=== PATIENT | female | born 1945 | race Caucasian/White ===

== ENCOUNTER 2022-06-14 21:06 | Inpatient (IN) | payer MEDICARE, OTHER ==
[~2022-06-14] VITALS: Ht 162.6 cm; Wt 49.9 kg
--- NOTE | 2022-06-14 21:20 | NUR ---
[id number] from snf, came in d/t sob 88% on room air, 98% on face mask 5liters. PLACED IN BED, AAOX3, BREATHING EVEN AND UNLABORED.
--- NOTE | 2022-06-14 21:44 | NUR ---
PT SEEN BY DR. HOPE
--- NOTE | 2022-06-14 21:45 | NUR ---
COVID ANTIGEN SWAB COLLECTED AND SENT TO LAB
--- NOTE | 2022-06-14 21:46 | NUR ---
EMT AT PT'S BEDSIDE FOR EKG
--- NOTE | 2022-06-14 21:48 | NUR ---
PT CAME WITH MIDLINE ON RIGHT UPPER ARM
--- NOTE | 2022-06-14 21:48 | NUR ---
BLOOD DRAWN BY HEAT TREAT OPERATOR
[2022-06-14 21:49] LABS: BASOPHILS % (AUTO) 0.1 % (0.0-2.0); EOSINOPHILS % (AUTO) 0.3 % (0.0-6.0); HEMATOCRIT 25 % (33-45); HEMOGLOBIN 7.8 g/dL (11.5-14.8); LYMPHOCYTES % (AUTO) 14.9 % (20.0-44.0); MEAN CORPUSCULAR HGB CONC 31 g/dl (31.0-36.0); MEAN CORPUSCULAR VOLUME 89 fL (82-100); MONOCYTES # (AUTO) 0.2 K/uL (0.1-1.30); MONOCYTES % (AUTO) 3.7 % (2.0-12.0); NEUTROPHILS # (AUTO) 5.3 K/uL (1.8-8.9); PLATELET COUNT (AUTO) 155 K/uL (150-450); RED BLOOD CELL COUNT(AUTO) 2.81 MIL/uL (4.0-5.2); WHITE BLOOD COUNT (AUTO) 6.5 K/uL (4.3-11.0)
--- NOTE | 2022-06-14 21:57 | NUR ---
RT CALLED FOR ABG
[2022-06-14] MEDS ORDERED: FUROSEMIDE 40 MG/4 ML VIAL IV ONE (22:00)
[2022-06-14] MEDS ORDERED: FUROSEMIDE 40 MG/4 ML VIAL ONE (22:04)
--- NOTE | 2022-06-14 22:05 | NUR ---
URINE COLLECTED AND SENT TO LAB
[2022-06-14 22:10] LABS: CALCIUM, SERUM 8.3 mg/dL (8.5-10.1); CARBON DIOXIDE 17 mmol/L (21-32); CHLORIDE 117 mmol/L (98-107); CREATININE 1.5 mg/dL (0.6-1.3); POTASSIUM 3.9 mmol/L (3.5-5.1); SODIUM SERUM 142 mmol/L (136-145); UREA NITROGEN, BLOOD 43 mg/dL (7-18)
--- NOTE | 2022-06-14 22:12 | NUR ---
GLUCOSE 369
--- NOTE | 2022-06-14 22:13 | NUR ---
RT AT PT'S BEDSIDE FOR ABG
[2022-06-14 22:22] LABS: ALANINE AMINOTRANSFERASE 16 U/L (12-78); ALBUMIN 2.1 g/dL (3.4-5.0); ALKALINE PHOSPHATASE 111 U/L (46-116); ASPARTATE AMINOTRANSFERASE 15 U/L (15-37); BILIRUBIN,DIRECT 0.1 mg/dL (0.0-0.2); BILIRUBIN,TOTAL 0.1 mg/dL (0.2-1.0); TOTAL PROTEIN, SERUM 6.4 g/dL (6.4-8.2)
[2022-06-14 22:26] LABS: GLUCOSE 369 mg/dL (74-106)
[2022-06-14 22:37] LABS: ABG BASE EXCESS -12.4 mmol/L; ABG PCO2 35.6 mmHg (35.0-45.0); ABG PH 7.221 (7.350-7.450); ABG PO2 83.5 mmHg (75.0-100.0); COHb 0.2 % (0.5-1.5); O2Hb 95.1 % (94.0-97.0); SITE, ABG Right Radial; VENT MODE, BG 6L SIMPLE MASK
[2022-06-14] MEDS ORDERED: ENOXAPARIN SODIUM 60 MG/0.6 ML DISP.SYRIN SQ ONE ×2 (22:44→23:00)
--- NOTE | 2022-06-14 22:44 | NUR ---
CLINICAL REPORT GIVEN TO GELY FROM [facility]
--- NOTE | 2022-06-14 22:53 | NUR ---
RESP. TECH AT BEDSIDE PATIENT ATTACHED TO BIPAP WITH SETTING IPAP-15, EPAP-5, RATE-18, FIO2-30%, SATURATING AT 96%.
[2022-06-14 23:03] LABS: BILIRUBIN,URINE NEGATIVE (NEGATIVE); COLOR,URINE DARK YELLOW (YELLOW); LEUKOCYTE ESTERASE ,URINE 3+ (NEGATIVE); NITRITE, URINE NEGATIVE (NEGATIVE); PROTEIN,URINE 2+ mg/dl (NEGATIVE); UGLUCOSE NEGATIVE (NEGATIVE); UROBILINOGEN,URINE 0.2 EU/dL (0.2)
[2022-06-14 23:06] LABS: BACTERIA,URINE Many /HPF (None Seen); SQUAMOUS EPITHELIAL CELL,UR Few /HPF (None Seen); WBC,URINE TOO NUMEROUS TO COUN /HPF (0-3)
[2022-06-14] MEDS ORDERED: CEFTRIAXONE 1GM BAG (ER ONLY) 50 ML IV ONE (23:18)
[2022-06-14] MEDS ORDERED: CEFTRIAXONE 1GM BAG (ER ONLY) 1 GM/50 ML PIGGYBACK IV ONE (23:30)
[2022-06-15] VITALS (15 sets, daily range): BP systolic 138–154; BP diastolic 71–90
--- NOTE | 2022-06-15 01:07 | NUR ---
RT AT PT'S BEDSIDE FOR ABG
--- NOTE | 2022-06-15 02:08 | NUR ---
NEEDS ATTENDED. POSITIONED COMFORTABLY
--- NOTE | 2022-06-15 04:12 | NUR ---
PT SLEEPING. STILL ON BIPAP 15/ RATE OF 18 FiO2 30%.
[2022-06-15] MEDS ORDERED: DEXTROSE 50%-WATER 50 ML DISP.SYRIN IV PRN ×2 (05:30→08:30)
[2022-06-15] MEDS ORDERED: ONDANSETRON HCL/PF 4 MG/2 ML VIAL IVP PRN (05:30)
[2022-06-15] MEDS ORDERED: MAGNESIUM HYDROXIDE 30 ML UDC PO PRN (05:30)
[2022-06-15] MEDS ORDERED: hydrALAZINE HCL IV 20 MG VIAL IV PRN (05:30)
[2022-06-15] MEDS ORDERED: *INSULIN REGULAR(HUMULIN R)HUM 100 UNIT/ML VIAL SQ PRN (05:30)
[2022-06-15] MEDS ORDERED: ACETAMINOPHEN 325 MG TABLET PO PRN (05:30)
[2022-06-15] MEDS ORDERED: ALBUTEROL FS 2.5 MG/0.5 ML VIAL.NEB NEB PRN (05:30)
[2022-06-15] MEDS ORDERED: Z GUARD REMEDY 4 OZ OINT TP PRN (05:30)
[2022-06-15] MEDS ORDERED: INSULIN REGULAR, HUMAN 100 UNIT/ML 3 ML VIAL SQ PRN (05:30)
[2022-06-15] MEDS ORDERED: MORPHINE SULFATE INJ 2 MG/ML DISP.SYRIN IV PRN (05:30)
--- NOTE | 2022-06-15 05:37 | NUR ---
ATTEMPTED TO GIVE REPORT. PER RN SUP REPORT TO BE GIVEN AFTER CHANGE OF SHIFT
[2022-06-15] MEDS ORDERED: IPRATROPIUM/ALBUTEROL INHALER IH SCH (06:00)
--- NOTE | 2022-06-15 06:40 | NUR ---
2DECHO DONE AT BEDSIDE
--- NOTE | 2022-06-15 07:23 | NUR ---
CALLED RN QUALITY CONTROL MANAGER THAT WE NEED MIDLINE NURSE TO INSERT IV ACCESS. DR BAZAN ORDERED.
--- NOTE | 2022-06-15 07:24 | NUR ---
REPORT GIVEN TO ROBERT FRANCES
[2022-06-15] MEDS ORDERED: BLOOD SUGAR DIAGNOSTIC 1 EACH STRIP VI SCH (07:30)
--- NOTE | 2022-06-15 07:54 | NUR ---
report given to belia du
[2022-06-15] MEDS ORDERED: IPRATROPIUM NEB FS 0.5 MG/2.5 ML AMPUL.NEB ONE (07:55)
[2022-06-15] MEDS ORDERED: ALBUTEROL FS 2.5 MG/0.5 ML VIAL.NEB ONE (07:55)
[2022-06-15] MEDS: ALBUTEROL FS 2.5 MG/0.5 ML VIAL.NEB NEB SCH ×3 (07:58→20:11)
[2022-06-15] MEDS: IPRATROPIUM NEB FS 0.5 MG/2.5 ML AMPUL.NEB IH SCH ×3 (07:58→20:10)
[2022-06-15] MEDS ORDERED: TRAM50TA2 PO (08:11)
[2022-06-15] MEDS ORDERED: AMIN30LI2 PO (08:11)
[2022-06-15] MEDS ORDERED: CRAN3875 PO (08:11)
[2022-06-15] MEDS ORDERED: PANT40TA2 PO (08:11)
[2022-06-15] MEDS ORDERED: FERR325T23 PO (08:11)
[2022-06-15] MEDS ORDERED: ASCO-352 PO (08:11)
[2022-06-15] MEDS ORDERED: LACT1CAP71 PO (08:11)
[2022-06-15] MEDS ORDERED: MULT-447 PO (08:11)
[2022-06-15] MEDS ORDERED: IPRA3AMP23 IH (08:11)
[2022-06-15] MEDS ORDERED: CRAN425C6 PO (08:11)
[2022-06-15] MEDS ORDERED: RISP0.2515 PO (08:11)
[2022-06-15] MEDS ORDERED: INSU100V39 SQ (08:11)
[2022-06-15] MEDS ORDERED: ARGI1POW13 PO (08:11)
[2022-06-15] MEDS ORDERED: ATOR10TA PO (08:11)
[2022-06-15] MEDS ORDERED: LEVO25TA7 PO (08:11)
[2022-06-15] MEDS ORDERED: ACET-868 PO ×2 (08:11)
[2022-06-15] MEDS ORDERED: AMLO-213 PO (08:11)
[2022-06-15] MEDS ORDERED: METO25TA20 PO (08:11)
[2022-06-15] MEDS ORDERED: INSU100I26 SQ (08:11)
[2022-06-15] MEDS ORDERED: EPOE1VIA6 SQ (08:11)
[2022-06-15] MEDS ORDERED: MAGN400O6 PO (08:11)
--- NOTE | 2022-06-15 08:20 | NUR ---
ADMITTED PT. FROM ER DEPT D/T SOB DIAGNOSIS PER ER-RN OCT. NO BELONGINGS NOTED. KEPT PT. CLEAN AND COMFORTABLE.
--- NOTE | 2022-06-15 08:23 | NUR ---
moved to inpatient room safely per acls protocol .
--- NOTE | 2022-06-15 08:35 | NUR ---
DR SHARMA SEEN PT. AND AWARE OF LAB RESULTS ALSO OF TROPONIN=93 AND BNP FROM 06/14/22.
[2022-06-15] MEDS: BLOOD SUGAR DIAGNOSTIC 1 EACH STRIP IN SCH ×3 (09:25→17:27)
[2022-06-15] MEDS: INSULIN REGULAR, HUMAN 100 UNIT/ML 3 ML VIAL SQ PRN ×2 (09:39→13:07)
[2022-06-15] MEDS: FUROSEMIDE 40 MG/4 ML VIAL IV SCH ×2 (09:40→17:27)
[2022-06-15] MEDS: HEPARIN SODIUM, PORCINE 5000 UNITS/1 ML VIAL SQ SCH ×2 (10:16→21:51)
[2022-06-15 12:25] LABS: THYROID STIMULATING HORMONE 3.838 uIU/mL (0.358-3.74)
[2022-06-15 12:52] LABS: MAGNESIUM 1.9 mg/dL (1.8-2.4)
--- NOTE | 2022-06-15 13:40 | NUR ---
PHONE REPORT GIVEN TO GURPREET REGARDING TRANSFER.
--- NOTE | 2022-06-15 14:00 | NUR ---
PATIENT WAS TRANSFERRED TO [facility]-BED 1 PER ORDER/ACLS PROTOCOL. PARI-RN AT BEDSIDE. PT. NO SSX OF DISTRESS NOTED.
--- NOTE | 2022-06-15 14:00 | NUR ---
RN NOTE PATIENT WAS TRANSFER FROM ICU VIA GURNEY WITH NO SIGN OF DISTRESS. V/S TAKEN, TABLE AND RECORDED. SKIN ASSESSMENT DONE. BELONGING LIST CHECKED AND SIGNED. PATIENT WAS ORIENTED TO ROOM SET UP AND EDUCATED ON THE USE OF CALL LIGHT. PATIENT AWAKE IN BED RESTING, A/O X 1, CONFUSED. NO S/S OF PAIN NOTED AT THIS TIME. ON 5L OXYGEN VIA NC, NO DISTRESS OR SHORTNESS OF BREATH NOTED. IV ACCESS KEVYN MIDLINE, INTACT, PATENT AND FLUSHING WELL. 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 PATIENT HAVE A SAUNDERS CATHETER IN PLACE AND DRAINING WELL. FALL AND SAFETY MEASURES IN PLACE, BED ALARM ON, BED IN LOW AND LOCK POSITION, CALL LIGHT AND TABLE WITHIN EASY REACH, SIDE RAILS UP X2. WILL CONTINUE TO MONITOR.
--- NOTE | 2022-06-15 18:40 | NUR ---
METAL NUMERICAL TOOL PROGRAMMER OPENING NOTES PATIENT AWAKE IN BED RESTING, A/O X 1, CONFUSED. NO S/S OF PAIN NOTED AT THIS TIME. ON 5L OXYGEN VIA NC. NO DISTRESS OR SHORTNESS OF BREATH NOTED. IV ACCESS KEVYN MIDLINE, INTACT, PATENT AND FLUSHING WELL. NO CARDIAC DISTRESS NOTED. PATIENT HAVE A SAUNDERS CATHETER IN PLACE AND DRAINING WEL. SAFETY MEASURES GIVEN WITH BED ON LOWEST POSITION AND LOCKED. SIDE RAILS UP X 2. BED ALARM ON. CALL LIGHT AND TABLE WITHIN EASY REACH. WILL CONTINUE WITH THE PLAN OF CARE.
--- NOTE | 2022-06-15 18:59 | NUR ---
RN CLOSING NOTE PATIENT AWAKE IN BED RESTING, A/O X 1, CONFUSED. NO S/S OF PAIN NOTED AT THIS TIME. ON 5L OXYGEN VIA NC, NO DISTRESS OR SHORTNESS OF BREATH NOTED. IV ACCESS KEVYN MIDLINE, INTACT, PATENT AND FLUSHING WELL. 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 PATIENT HAVE A SAUNDERS CATHETER IN PLACE AND DRAINING WELL, OUTPUT 800ML, YELLOW URINE. SCHEDULE MEDICATIONS ADMINISTERED. PATIENT WS TURNED AND REPOSITIONED PER PROTOCOL. FALL AND SAFETY MEASURES IN PLACE, BED ALARM ON, BED IN LOW AND LOCK POSITION, CALL LIGHT AND TABLE WITHIN EASY REACH, SIDE RAILS UP X2. WILL ENDORSE TO LIQUOR ESTABLISHMENT MANAGER.
[2022-06-16] VITALS (8 sets, daily range): BP systolic 144–163; BP diastolic 76–92
--- NOTE | 2022-06-16 00:10 | NUR ---
RN NOTES PATIENT'S BLOOD SUGAR IS 132. INSULIN NOT GIVEN. PATIENT IS ON NPO.
[2022-06-16] MEDS: BLOOD SUGAR DIAGNOSTIC 1 EACH STRIP IN SCH ×4 (00:13→17:17)
--- NOTE | 2022-06-16 00:53 | NUR ---
TELERN DUE MEDS ADMINISTERED.
[2022-06-16] MEDS: ALBUTEROL FS 2.5 MG/0.5 ML VIAL.NEB NEB SCH ×4 (01:30→20:18)
[2022-06-16] MEDS: IPRATROPIUM NEB FS 0.5 MG/2.5 ML AMPUL.NEB IH SCH ×4 (01:30→20:18)
[2022-06-16 05:50] LABS: BASOPHILS % (AUTO) 0.1 % (0.0-2.0); EOSINOPHILS % (AUTO) 1.1 % (0.0-6.0); HEMATOCRIT 24 % (33-45); HEMOGLOBIN 7.7 g/dL (11.5-14.8); LYMPHOCYTES # (AUTO) 1.9 K/uL (0.8-4.8); LYMPHOCYTES % (AUTO) 19.9 % (20.0-44.0); MEAN CORPUSCULAR HGB CONC 32 g/dl (31.0-36.0); MEAN CORPUSCULAR VOLUME 88 fL (82-100); MONOCYTES # (AUTO) 0.5 K/uL (0.1-1.30); MONOCYTES % (AUTO) 5.1 % (2.0-12.0); NEUTROPHILS # (AUTO) 6.9 K/uL (1.8-8.9); NEUTROPHILS % (AUTO) 73.8 % (43.0-81.0); PLATELET COUNT (AUTO) 159 K/uL (150-450); RED BLOOD CELL COUNT(AUTO) 2.76 MIL/uL (4.0-5.2); WHITE BLOOD COUNT (AUTO) 9.3 K/uL (4.3-11.0)
[2022-06-16 06:08] LABS: ALANINE AMINOTRANSFERASE 14 U/L (12-78); ALBUMIN 2.2 g/dL (3.4-5.0); ALKALINE PHOSPHATASE 105 U/L (46-116); ASPARTATE AMINOTRANSFERASE 17 U/L (15-37); BILIRUBIN,TOTAL 0.2 mg/dL (0.2-1.0); CALCIUM, SERUM 8.5 mg/dL (8.5-10.1); CARBON DIOXIDE 18 mmol/L (21-32); CHLORIDE 119 mmol/L (98-107); CREATININE 1.4 mg/dL (0.6-1.3); GLUCOSE 146 mg/dL (74-106); MAGNESIUM 1.8 mg/dL (1.8-2.4); PHOSPHORUS 3.5 mg/dL (2.5-4.9); POTASSIUM 3.7 mmol/L (3.5-5.1); SODIUM SERUM 148 mmol/L (136-145); TOTAL PROTEIN, SERUM 6.5 g/dL (6.4-8.2); UREA NITROGEN, BLOOD 39 mg/dL (7-18)
--- NOTE | 2022-06-16 06:24 | NUR ---
VIDEO SURVEILLANCE TECHNICIAN NOTES PATIENT'S TROPONIN LEVEL IS 116 PER JASPER FROM LAB. WILL REPORT TO THE DOCTOR.
--- NOTE | 2022-06-16 06:50 | NUR ---
SERVICE UNIT OPERATOR OIL WELL CLOSING NOTES PATIENT AWAKE IN BED RESTING, A/O X 1, CONFUSED. NO S/S OF PAIN NOTED AT THIS TIME. ON 5L OXYGEN VIA NC, NO DISTRESS OR SHORTNESS OF BREATH NOTED. IV ACCESS KEVYN MIDLINE, INTACT, PATENT AND FLUSHING WELL. 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 PATIENT HAVE A SAUNDERS CATHETER IN PLACE AND DRAINING WELL, OUTPUT 2050 ML, YELLOW URINE. SCHEDULE MEDICATIONS ADMINISTERED. PATIENT WAS TURNED AND REPOSITIONED PER PROTOCOL. PICTURES TAKEN TODAY. FALL AND SAFETY MEASURES IN PLACE, BED ALARM ON, BED IN LOW AND LOCK POSITION, CALL LIGHT AND TABLE WITHIN EASY REACH, SIDE RAILS UP X2. WILL ENDORSE TO SUPERVISOR COMMUNICATIONS AND SIGNALS.
[2022-06-16] MEDS ORDERED: LEVOTHYROXINE SODIUM 25 MCG TABLET PO SCH (07:30)
--- NOTE | 2022-06-16 07:35 | NUR ---
RN OPENING NOTE- PATIENT SLEEPING IN BED, EASILY AWAKENED, ON 3L OXYGEN VIA NC. SATS 98%. NO DISTRESS OR SHORTNESS OF BREATH NOTED. IV ACCESS KEVYN MIDLINE, INTACT, NO CARDIAC DISTRESS NOTED. PATIENT HAVE A SAUNDERS CATHETER TO GRAVITY DRAINING CLEAR YELLOW UA.. SAFETY MEASURES GIVEN WITH BED ON LOWEST POSITION AND LOCKED. SIDE RAILS UP X 2. BED ALARM ON. CALL LIGHT AND TABLE WITHIN EASY REACH. MONITOR / ASSIST
[2022-06-16 08:56] LABS: ABG BASE EXCESS -8.3 mmol/L; ABG OXYGEN SATURATION 94.4 % (92.0-98.5); ABG PCO2 25.8 mmHg (35.0-45.0); ABG PH 7.396 (7.350-7.450); ABG PO2 69.9 mmHg (75.0-100.0); AaDO2 99.3 mmHg; COHb 1.1 % (0.5-1.5); MetHb 0.2 % (0.0-1.5); O2Hb 93.2 % (94.0-97.0); SITE, ABG Right Radial; VENT MODE, BG 2L NASAL CANNULA
--- NOTE | 2022-06-16 09:09 | NUR ---
WOUND CARE CONSULT: PT PRESENTS WITH SEVERELY CONTRACTED LOWER EXTREMITIES, REDNESS TO HEELS AND TOES WELL VERY FRAGILE SACRAL SCAR, PRESENT ON ADMISSION. RECOMMENDATIONS MADE FOR SKIN PROTECTION. DISCUSSED WITH NURSING STAFF. MD IN AGREEMENT WITH PLAN OF CARE.
[2022-06-16] MEDS: FUROSEMIDE 40 MG/4 ML VIAL IV SCH ×2 (09:59→16:15)
[2022-06-16] MEDS: LEVOTHYROXINE SODIUM 50 MCG TABLET PO SCH (09:59)
[2022-06-16] MEDS: PANTOPRAZOLE 40 MG TABLET.DR PO SCH (09:59)
[2022-06-16] MEDS: HEPARIN SODIUM, PORCINE 5000 UNITS/1 ML VIAL SQ SCH ×2 (10:01→21:38)
[2022-06-16] MEDS: INSULIN REGULAR, HUMAN 100 UNIT/ML 3 ML VIAL SQ PRN ×3 (12:31→17:22)
--- NOTE | 2022-06-16 13:26 | NUR ---
RN NOTE PT BLOOD SUGAR 163. PT TO HAVE 3 UNIT SSI. PT NOT EATING, INSULIN HELD
[2022-06-16] MEDS: ENSURE ENLIVE 237 ML LIQUID (VANILLA) PO SCH (17:01)
--- NOTE | 2022-06-16 18:37 | NUR ---
CLOSING NOTE: PATIENT IS AWAKE, RESPONSIVE AND FOLLOWS VERBAL COMMAND. A/O X1, ON 3L OXYGEN VIA NC. SATS 97%. NO DISTRESS OR SHORTNESS OF BREATH NOTED. IV ACCESS KEVYN MIDLINE, INTACT, NO CARDIAC DISTRESS NOTED. ON TELE MONITOR SINUS RYTHYM, HR 86.PATIENT HAVE A SAUNDERS CATHETER TO GRAVITY DRAINING CLEAR YELLOW UA.SAFETY MEASURES GIVEN WITH BED ON LOWEST POSITION AND LOCKED. SIDE RAILS UP X 2. BED ALARM ON. CALL LIGHT AND TABLE WITHIN EASY REACH. WILL ENDORSE TO THE NEXT SHIFT FOR CONTINUITY OF CARE.
--- NOTE | 2022-06-16 19:20 | NUR ---
TELERN AWAKE, LIMITED VERBAL, CONFUSED. MIDLINE RIGHT UPPER ARM PATENT. SAUNDERS TO GRAVITY OUTPUT MONITORED. SR ON THE MONITOR. NO SOB, O2 MAINTAINED, HOB TO 45 DEGREES AT ALL TIMES. V/S STABLE, CONTINUED MONITORING
[2022-06-16] MEDS: CEFTRIAXONE 1 G in IV D5W 50 ML IV SCH (22:56)
--- NOTE | 2022-06-16 23:20 | NUR ---
TELERN HAD LARGE LOOSE BM, HS CARE STARTED. POSITIONED FOR COMFORT.
[2022-06-17 00:56] VITALS: BP 153/84
[2022-06-17] MEDS: ALBUTEROL FS 2.5 MG/0.5 ML VIAL.NEB NEB SCH ×4 (01:30→19:55)
[2022-06-17] MEDS: IPRATROPIUM NEB FS 0.5 MG/2.5 ML AMPUL.NEB IH SCH ×4 (01:30→19:55)
[2022-06-17 04:19] VITALS: BP 143/82
[2022-06-17 06:17] LABS: BASOPHILS % (AUTO) 0.2 % (0.0-2.0); EOSINOPHILS % (AUTO) 0.7 % (0.0-6.0); HEMATOCRIT 24 % (33-45); HEMOGLOBIN 7.6 g/dL (11.5-14.8); LYMPHOCYTES # (AUTO) 1.5 K/uL (0.8-4.8); LYMPHOCYTES % (AUTO) 14.3 % (20.0-44.0); MEAN CORPUSCULAR HGB CONC 32 g/dl (31.0-36.0); MEAN CORPUSCULAR VOLUME 88 fL (82-100); MONOCYTES # (AUTO) 0.7 K/uL (0.1-1.30); MONOCYTES % (AUTO) 6.5 % (2.0-12.0); NEUTROPHILS # (AUTO) 8.1 K/uL (1.8-8.9); NEUTROPHILS % (AUTO) 78.3 % (43.0-81.0); PLATELET COUNT (AUTO) 141 K/uL (150-450); RED BLOOD CELL COUNT(AUTO) 2.71 MIL/uL (4.0-5.2); WHITE BLOOD COUNT (AUTO) 10.4 K/uL (4.3-11.0)
[2022-06-17 06:20] LABS: CALCIUM, SERUM 8.1 mg/dL (8.5-10.1); CARBON DIOXIDE 20 mmol/L (21-32); CHLORIDE 113 mmol/L (98-107); CREATININE 1.5 mg/dL (0.6-1.3); GLUCOSE 213 mg/dL (74-106); POTASSIUM 3.1 mmol/L (3.5-5.1); SODIUM SERUM 145 mmol/L (136-145); UREA NITROGEN, BLOOD 33 mg/dL (7-18)
--- NOTE | 2022-06-17 06:35 | NUR ---
TELERN BS 188 COVERED WITH 3 UNITS REGULAR INSULIN SQ. 1500 CC URINE OUTPUT.
[2022-06-17] MEDS: BLOOD SUGAR DIAGNOSTIC 1 EACH STRIP IN SCH ×5 (06:41→23:10)
[2022-06-17] MEDS: INSULIN REGULAR, HUMAN 100 UNIT/ML 3 ML VIAL SQ PRN ×4 (06:53→23:36)
--- NOTE | 2022-06-17 07:15 | NUR ---
RN OPENING NOTE: PATIENT IS RESTING IN BED, RESPONSIVE AND FOLLOWS VERBAL COMMAND. A/O X1, ON 3L OXYGEN VIA NC. SATS 97%. NO DISTRESS OR SHORTNESS OF BREATH NOTED. IV ACCESS KEVYN MIDLINE, INTACT, NO CARDIAC DISTRESS NOTED. ON TELE MONITOR SINUS RYTHYM, HR 75. PATIENT HAS A SAUNDERS CATHETER WITH GRAVITY DRAINING CLEAR YELLOW UA.SAFETY MEASURES IN PLACE WITH BED IN LOWEST LOCKED POSITION. SIDE RAILS UP X 2. BED ALARM ON. CALL LIGHT AND TABLE WITHIN EASY REACH. WILL CONTINUE TO MONITOR.
[2022-06-17 08:00] VITALS: BP 160/80
[2022-06-17] MEDS: FUROSEMIDE 40 MG/4 ML VIAL IV SCH ×5 (08:26→17:00)
[2022-06-17] MEDS: ENSURE ENLIVE 237 ML LIQUID (VANILLA) PO SCH ×3 (08:26→17:13)
[2022-06-17] MEDS: PANTOPRAZOLE 40 MG TABLET.DR PO SCH (08:26)
[2022-06-17] MEDS: LEVOTHYROXINE SODIUM 50 MCG TABLET PO SCH (08:26)
[2022-06-17] MEDS: HEPARIN SODIUM, PORCINE 5000 UNITS/1 ML VIAL SQ SCH ×2 (08:27→21:48)
[2022-06-17] MEDS ORDERED: POTASSIUM CHLORIDE 20 MEQ TAB.PRT.SR PO SCH (09:00)
--- NOTE | 2022-06-17 10:23 | NUR ---
RN NOTE DOUBLE ORDER OF FUROSEMIDE FOR 9AM. GAVE 40IVP AND WILL GIVE SECOND DOSE AT 1300. CLARIFIED ORDER WITH
[2022-06-17 10:38] LABS: BAND % (MANUAL) 8 % (0.0-5.0); LYMPHOCYTES % (MANUAL) 8 % (16-48); MONOCYTES % (MANUAL) 4 % (0-11.0); NEUTROPHILS % (MANUAL) 80 (42-76)
[2022-06-17] MEDS: Potassium Chloride 10 MEQ, LIDOCAINE HCL/PF 1% 1 ML in IV D5W 50 ML IV SCH ×2 (10:51→11:53)
[2022-06-17 12:00] VITALS: BP 168/78
[2022-06-17 16:00] VITALS: BP 136/79
--- NOTE | 2022-06-17 17:34 | NUR ---
RN NOTE DOUBLE ORDER OF FUROSEMIDE GAVE 40IVP. MULTIPLE ORDERS IN EMAR
--- NOTE | 2022-06-17 19:21 | NUR ---
ELEMENTARY ESL TEACHER CLOSING NOTE PATIENT IS AWAKE, RESPONSIVE AND FOLLOWS VERBAL COMMAND. A/O X1, ON 2L OXYGEN VIA NC. SATS 97%. NO DISTRESS OR SHORTNESS OF BREATH NOTED. IV ACCESS KEVYN MIDLINE, INTACT, NO CARDIAC DISTRESS NOTED. ON TELE MONITOR SINUS RYTHYM, HR 76.PATIENT HAVE A SAUNDERS CATHETER TO GRAVITY DRAINING CLEAR YELLOW UA.SAFETY MEASURES GIVEN WITH BED ON LOWEST POSITION AND LOCKED. SIDE RAILS UP X 2. BED ALARM ON. CALL LIGHT AND TABLE WITHIN EASY REACH. WILL ENDORSE TO THE NEXT SHIFT FOR CONTINUITY OF CARE.
--- NOTE | 2022-06-17 20:00 | NUR ---
TELERN BREATHING TREATMENT ON PROGRESS. TO CONTINUE
[2022-06-17 20:17] VITALS: BP 153/86
[2022-06-17] MEDS: CEFTRIAXONE 1 G in IV D5W 50 ML IV SCH (23:10)
--- NOTE | 2022-06-17 23:52 | NUR ---
telern due meds administered. bs 186 covered with 3 units of regular insulin sq.
--- NOTE | 2022-06-17 23:53 | NUR ---
TELERN HS CARE STARTED, HAD LOOSE YELLOW BM
[2022-06-18 00:30] VITALS: BP 156/78
[2022-06-18] MEDS: ALBUTEROL FS 2.5 MG/0.5 ML VIAL.NEB NEB SCH ×4 (01:52→20:08)
[2022-06-18] MEDS: IPRATROPIUM NEB FS 0.5 MG/2.5 ML AMPUL.NEB IH SCH ×4 (01:52→20:08)
[2022-06-18 05:42] VITALS: BP 145/79
--- NOTE | 2022-06-18 06:18 | NUR ---
TELERN REPOSITIONED, KEPT DRY CLEAN AND COMFORTABLE. BLOOD DRAWN, BS 143, COVERED WITH 2 UNITS REG INSULIN SQ PER SLIDING SCALE.
[2022-06-18] MEDS: BLOOD SUGAR DIAGNOSTIC 1 EACH STRIP IN SCH ×4 (06:38→23:19)
[2022-06-18] MEDS: INSULIN REGULAR, HUMAN 100 UNIT/ML 3 ML VIAL SQ PRN ×4 (06:41→23:22)
[2022-06-18 07:06] LABS: BASOPHILS % (AUTO) 0.2 % (0.0-2.0); EOSINOPHILS % (AUTO) 1.6 % (0.0-6.0); HEMATOCRIT 24 % (33-45); HEMOGLOBIN 7.9 g/dL (11.5-14.8); LYMPHOCYTES # (AUTO) 1.8 K/uL (0.8-4.8); LYMPHOCYTES % (AUTO) 19.6 % (20.0-44.0); MEAN CORPUSCULAR HGB CONC 33 g/dl (31.0-36.0); MEAN CORPUSCULAR VOLUME 87 fL (82-100); MONOCYTES # (AUTO) 0.7 K/uL (0.1-1.30); NEUTROPHILS # (AUTO) 6.4 K/uL (1.8-8.9); NEUTROPHILS % (AUTO) 70.6 % (43.0-81.0); PLATELET COUNT (AUTO) 129 K/uL (150-450); RED BLOOD CELL COUNT(AUTO) 2.82 MIL/uL (4.0-5.2); WHITE BLOOD COUNT (AUTO) 9.1 K/uL (4.3-11.0)
--- NOTE | 2022-06-18 07:25 | NUR ---
RN OPENING NOTE RECEIVED PATIENT ASLEEP IN BED, EASILY AROUSED. NO SIGNS OF ACUTE DISTRESS NOTED. ON O2 INHALATION @2LPM VIA N/C, NO SOB NOTED, BREATHING EVEN AND UNLABORED. NOTED WITH RIGHT UPPER ARM MIDLINE, INTACT AND PATENT, SALINE LOCKED. NO S/SX OF PAIN AT THIS TIME. ON TELE MONITOR SHOWING SINUS RHYTHM, HR @ 79. SAFETY MEASURE IN PLACE, BED IN LOW AND LOCKED POSITION, SIDE RAILS UP , CALL LIGHT PLACED WITHIN EASY REACH. WILL CONTINUE TO MONITOR PATIENT.
[2022-06-18 07:49] LABS: CALCIUM, SERUM 8.2 mg/dL (8.5-10.1); CARBON DIOXIDE 23 mmol/L (21-32); CHLORIDE 113 mmol/L (98-107); CREATININE 1.5 mg/dL (0.6-1.3); GLUCOSE 143 mg/dL (74-106); MAGNESIUM 1.7 mg/dL (1.8-2.4); PHOSPHORUS 3.3 mg/dL (2.5-4.9); POTASSIUM 3.5 mmol/L (3.5-5.1); SODIUM SERUM 145 mmol/L (136-145); UREA NITROGEN, BLOOD 31 mg/dL (7-18)
[2022-06-18 08:00] VITALS: BP 148/85
[2022-06-18] MEDS: ENSURE ENLIVE 237 ML LIQUID (VANILLA) PO SCH ×3 (08:24→17:01)
[2022-06-18] MEDS: FUROSEMIDE 40 MG/4 ML VIAL IV SCH ×2 (08:24→16:12)
[2022-06-18] MEDS: LEVOTHYROXINE SODIUM 50 MCG TABLET PO SCH (08:24)
[2022-06-18] MEDS: PANTOPRAZOLE 40 MG TABLET.DR PO SCH (08:24)
[2022-06-18] MEDS: HEPARIN SODIUM, PORCINE 5000 UNITS/1 ML VIAL SQ SCH (08:25)
[2022-06-18] MEDS: Magnesium 1GM/D5W 100ML PREMIX 100 ML IV SCH ×2 (08:44→09:54)
[2022-06-18] MEDS: POTASSIUM CHLORIDE 20 MEQ TAB.PRT.SR PO SCH ×3 (08:44→11:05)
--- NOTE | 2022-06-18 10:21 | NUR ---
RN NOTE SPOKE WITH PATIENT'S BROTHER KATY BLAND, OBTAINED CONSENT FOR PLANNED THORACENTESIS TOMORROW. BROTHER GAVE VERBAL CONSENT, VERIFIED WITH ANOTHER RN. CONSENT PLACED IN CHART.
[2022-06-18 16:00] VITALS: BP 149/78
--- NOTE | 2022-06-18 18:35 | NUR ---
RN CLOSING NOTE PATIENT RESTING IN BED, EASILY AROUSED. NO SIGNS OF ACUTE DISTRESS NOTED. REMAINS ON O2 INHALATION @2LPM VIA N/C, NO SOB NOTED, BREATHING EVEN AND UNLABORED. RIGHT UPPER ARM MIDLINE, INTACT AND PATENT, SALINE LOCKED. NO S/SX OF PAIN AT THIS TIME. ALL DUE MEDS GIVEN, TOLERATED WELL. ASPIRATION PRECAUTION OBSERVED. HOB ELEVATED AT LEAST 40 DEGREES. SAFETY MEASURE IN PLACE, BED IN LOW AND LOCKED POSITION, SIDE RAILS UP, CALL LIGHT PLACED WITHIN EASY REACH. WILL ENDORSE TO NEXT SHIFT FOR CONTINUITY OF CARE.
--- NOTE | 2022-06-18 19:29 | NUR ---
MS RN OPENING NOTE RECEIVED PATIENT FROM MORNING SHIFT NURSE; PATIENT IS ALERT AND ORIENTED X 1, HEAD OF BED ELEVATED TO 40 DEGREES; ON NASAL CANNULA 2 LPM TOLERATING WELL AND NO RESPIRATORY DISTRESS NOTED; WITH KEVYN MIDLINE ACCESS; SAUNDERS CATHETER IN PLACE DRAINING TO YELLOW COLORED URINE APPROXIMATELY 1460ML; SAFETY PRECAUTIONS IMPLEMENTED, BED IN LOW POSITION, LOCKED, SIDE RAILS UP X 3, CALL LIGHT WITHIN REACH; WILL CONTINUE TO MONITOR THROUGHOUT SHIFT
[2022-06-18 20:00] VITALS: BP 157/77
--- NOTE | 2022-06-18 20:10 | NUR ---
Pt recvd on 2 lpm NC, no SOB or respiratory distress noted at this time. Neb tx given and pt vita well with no adverse reaction noted. SPo2 100%.
--- NOTE | 2022-06-18 20:20 | NUR ---
Titrated O2 from 2 lpm to 1 lpm. RN bedside and aware. Spo2 at 99%
[2022-06-18] MEDS: MUPIROCIN OINT 2% 22 GM TUBE NS SCH (20:48)
[2022-06-18 21:05] VITALS: BP 157/77
[2022-06-18] MEDS: CEFTRIAXONE 1 G in IV D5W 50 ML IV SCH (23:09)
[2022-06-19] MEDS: IPRATROPIUM NEB FS 0.5 MG/2.5 ML AMPUL.NEB IH SCH ×4 (02:23→20:52)
[2022-06-19] MEDS: ALBUTEROL FS 2.5 MG/0.5 ML VIAL.NEB NEB SCH ×4 (02:23→20:52)
[2022-06-19 05:47] LABS: BASOPHILS % (AUTO) 0.1 % (0.0-2.0); EOSINOPHILS % (AUTO) 2.4 % (0.0-6.0); HEMATOCRIT 25 % (33-45); HEMOGLOBIN 8.1 g/dL (11.5-14.8); LYMPHOCYTES # (AUTO) 1.7 K/uL (0.8-4.8); LYMPHOCYTES % (AUTO) 20.3 % (20.0-44.0); MEAN CORPUSCULAR HGB CONC 32 g/dl (31.0-36.0); MEAN CORPUSCULAR VOLUME 87 fL (82-100); MONOCYTES # (AUTO) 0.6 K/uL (0.1-1.30); MONOCYTES % (AUTO) 7.4 % (2.0-12.0); NEUTROPHILS # (AUTO) 5.8 K/uL (1.8-8.9); NEUTROPHILS % (AUTO) 69.8 % (43.0-81.0); PLATELET COUNT (AUTO) 123 K/uL (150-450); RED BLOOD CELL COUNT(AUTO) 2.87 MIL/uL (4.0-5.2); WHITE BLOOD COUNT (AUTO) 8.3 K/uL (4.3-11.0)
[2022-06-19] MEDS: BLOOD SUGAR DIAGNOSTIC 1 EACH STRIP IN SCH ×4 (05:53→23:35)
[2022-06-19] MEDS: INSULIN REGULAR, HUMAN 100 UNIT/ML 3 ML VIAL SQ PRN ×3 (05:58→23:35)
[2022-06-19 06:24] LABS: CALCIUM, SERUM 8.3 mg/dL (8.5-10.1); CARBON DIOXIDE 24 mmol/L (21-32); CHLORIDE 111 mmol/L (98-107); CREATININE 1.6 mg/dL (0.6-1.3); GLUCOSE 149 mg/dL (74-106); POTASSIUM 4.2 mmol/L (3.5-5.1); SODIUM SERUM 144 mmol/L (136-145); UREA NITROGEN, BLOOD 31 mg/dL (7-18)
--- NOTE | 2022-06-19 06:50 | NUR ---
MS RN CLOSING NOTE PATIENT IS ALERT AND ORIENTED X 1, HEAD OF BED ELEVATED TO 40 DEGREES; ON NASAL CANNULA 2 LPM TOLERATING WELL AND NO RESPIRATORY DISTRESS NOTED; WITH KEVYN MIDLINE ACCESS INTACT AND PATENT; SAUNDERS CATHETER IN PLACE DRAINING TO YELLOW COLORED URINE APPROXIMATELY 1500ML; ADMINISTERED MEDICATIONS PRESCRIBED; PATIENT'S NEEDS ATTENDED; MONITORED ACCORDINGLY; SAFETY PRECAUTIONS IMPLEMENTED, BED IN LOW POSITION, LOCKED, SIDE RAILS UP X 3, CALL LIGHT WITHIN REACH; WILL ENDORSE TO AM NURSE FOR CONTINUITY OF CARE
[2022-06-19 08:00] VITALS: BP 148/75
--- NOTE | 2022-06-19 08:00 | NUR ---
ms rn received on bed, awake,alert,oriented x 1 ,not in any form of distress, respirations even and unlabored,no sob noted,lungs are diminished,abdomen soft,positive bowel sounds,denies pain at this time, will monitor patient.
--- NOTE | 2022-06-19 09:15 | NUR ---
ms du breakfast served,due meds given,tolerated well.
[2022-06-19] MEDS: LEVOTHYROXINE SODIUM 50 MCG TABLET PO SCH (09:38)
[2022-06-19] MEDS: FUROSEMIDE 40 MG/4 ML VIAL IV SCH ×2 (09:38→17:31)
[2022-06-19] MEDS: PANTOPRAZOLE 40 MG TABLET.DR PO SCH (09:38)
[2022-06-19] MEDS: ENSURE ENLIVE 237 ML LIQUID (VANILLA) PO SCH ×3 (09:39→17:30)
[2022-06-19] MEDS: MUPIROCIN OINT 2% 22 GM TUBE NS SCH ×2 (12:05→21:47)
--- NOTE | 2022-06-19 14:00 | NUR ---
ms rn u/s guided thoracentesis was not done, management services technician will do in in am, charge nurse is aware.
--- NOTE | 2022-06-19 15:30 | NUR ---
13:24 ABDOMINAL ULTRASOUND DONE. PT DEFECATED AND URINATED, BED SHEETS DIRTY UP TO PT'S WAIST, NEEDED TO BE CLEANED AND CHANGED BEFORE US SCANNING FOR THORACENTESIS. PER RADIOLOGIST THORACENTESIS CAN NOT BE DONE LATER TODAY DO TO RISK OF PNEUMOTHORAX. IT WILL BE DONE TOMORROW. CHARGE NURSE AND RNPETR WERE INFORMED.
[2022-06-19 16:00] VITALS: BP 147/82
[2022-06-19 20:00] VITALS: BP 140/73
[2022-06-19] MEDS: CEFTRIAXONE 1 G in IV D5W 50 ML IV SCH (23:19)
[2022-06-20] MEDS: ALBUTEROL FS 2.5 MG/0.5 ML VIAL.NEB NEB SCH ×4 (02:30→21:01)
[2022-06-20] MEDS: IPRATROPIUM NEB FS 0.5 MG/2.5 ML AMPUL.NEB IH SCH ×4 (02:30→21:01)
--- NOTE | 2022-06-20 06:15 | NUR ---
END OF SHIFT REPORT Patient in bed, Alert Oriented x1 Confused. Oxygen sat high 90's in room air. KEVYN midline intact, on IV abx. Afebrile. Elizabeth catheter to drainage, output 700ml yellow. Had BM this shift. Turned and repositioned q 2h, BUE/BLE extremities contracted. Skin precaution maintained. Plan for Thoracentesis, continue abx. Will endorse to oncoming RN.
[2022-06-20 06:25] LABS: BASOPHILS % (AUTO) 0.3 % (0.0-2.0); EOSINOPHILS % (AUTO) 2.5 % (0.0-6.0); HEMATOCRIT 25 % (33-45); LYMPHOCYTES # (AUTO) 1.9 K/uL (0.8-4.8); LYMPHOCYTES % (AUTO) 25.3 % (20.0-44.0); MEAN CORPUSCULAR HGB CONC 32 g/dl (31.0-36.0); MEAN CORPUSCULAR VOLUME 88 fL (82-100); MONOCYTES # (AUTO) 0.6 K/uL (0.1-1.30); MONOCYTES % (AUTO) 8.7 % (2.0-12.0); NEUTROPHILS # (AUTO) 4.7 K/uL (1.8-8.9); NEUTROPHILS % (AUTO) 63.2 % (43.0-81.0); PLATELET COUNT (AUTO) 134 K/uL (150-450); RED BLOOD CELL COUNT(AUTO) 2.86 MIL/uL (4.0-5.2); WHITE BLOOD COUNT (AUTO) 7.4 K/uL (4.3-11.0)
[2022-06-20] MEDS: BLOOD SUGAR DIAGNOSTIC 1 EACH STRIP IN SCH ×4 (06:31→23:46)
[2022-06-20] MEDS: INSULIN REGULAR, HUMAN 100 UNIT/ML 3 ML VIAL SQ PRN ×4 (06:33→23:49)
[2022-06-20 06:48] LABS: CALCIUM, SERUM 8.1 mg/dL (8.5-10.1); CARBON DIOXIDE 23 mmol/L (21-32); CHLORIDE 107 mmol/L (98-107); CREATININE 1.7 mg/dL (0.6-1.3); GLUCOSE 169 mg/dL (74-106); POTASSIUM 3.9 mmol/L (3.5-5.1); SODIUM SERUM 142 mmol/L (136-145); UREA NITROGEN, BLOOD 33 mg/dL (7-18)
--- NOTE | 2022-06-20 07:20 | NUR ---
ms rn received on bed, sleeping, schneider catherte intact w/ yellowish urine output, denies pain at this time, no sob noted, for thoracentesis today, all needs attended.
[2022-06-20 08:00] VITALS: BP 128/58
[2022-06-20] MEDS: LEVOTHYROXINE SODIUM 50 MCG TABLET PO SCH (08:36)
[2022-06-20] MEDS: PANTOPRAZOLE 40 MG TABLET.DR PO SCH (08:36)
[2022-06-20] MEDS: FUROSEMIDE 40 MG/4 ML VIAL IV SCH ×2 (08:36→17:29)
[2022-06-20] MEDS: MUPIROCIN OINT 2% 22 GM TUBE NS SCH ×2 (09:11→21:07)
[2022-06-20] MEDS: ENSURE ENLIVE 237 ML LIQUID (VANILLA) PO SCH ×3 (09:11→17:37)
--- NOTE | 2022-06-20 11:24 | NUR ---
ms rn s/p thoracentesis, specimen sent to labs for studies, patient tolerated procedure well, no distress noted.
[2022-06-20 16:00] VITALS: BP 125/78
--- NOTE | 2022-06-20 16:37 | NUR ---
ms rn on bed, no distress noted,all needs attended.
--- NOTE | 2022-06-20 17:42 | NUR ---
ms rn on bed, no distress, will endorse to second operator for betty.
[2022-06-20 20:00] VITALS: BP 142/78
[2022-06-20] MEDS: CEFTRIAXONE 1 G in IV D5W 50 ML IV SCH (23:01)
[2022-06-21] MEDS: ALBUTEROL FS 2.5 MG/0.5 ML VIAL.NEB NEB SCH ×3 (01:43→13:48)
[2022-06-21] MEDS: IPRATROPIUM NEB FS 0.5 MG/2.5 ML AMPUL.NEB IH SCH ×3 (01:43→13:47)
[2022-06-21] MEDS: BLOOD SUGAR DIAGNOSTIC 1 EACH STRIP IN SCH ×2 (06:31→12:08)
[2022-06-21] MEDS: INSULIN REGULAR, HUMAN 100 UNIT/ML 3 ML VIAL SQ PRN ×2 (06:40→12:07)
--- NOTE | 2022-06-21 06:55 | NUR ---
END OF SHIFT REPORT Patient in bed, Alert Oriented x1 Follow simple command. Oxygen sat high 90's in room air. KEVYN midline intact, on IV abx. Afebrile. Elizabeth catheter to drainage, output 600ml yellow. Turned and repositioned q 2h, BUE/BLE extremities contracted. Skin precaution maintained. Plan continue abx. Will endorse to oncoming RN.
--- NOTE | 2022-06-21 07:08 | NUR ---
ms rn received on bed, awake,oriented x1-2,not in any form of distress, respirations even and unlabored,no sob noted, extremities are contracted, sacral wound noted w/ dressing dry and intact, denies pain at this time,all needs attended.
[2022-06-21 08:00] VITALS: BP 152/77
[2022-06-21] MEDS ORDERED: FURO-144 PO (08:55)
[2022-06-21] MEDS ORDERED: NITR100C6 PO (09:02)
--- NOTE | 2022-06-21 10:00 | NUR ---
ms du breakfast served,due meds given,tolerated well.
[2022-06-21] MEDS: LEVOTHYROXINE SODIUM 50 MCG TABLET PO SCH (10:10)
[2022-06-21] MEDS: PANTOPRAZOLE 40 MG TABLET.DR PO SCH (10:10)
[2022-06-21] MEDS: FUROSEMIDE 40 MG/4 ML VIAL IV SCH (10:10)
[2022-06-21] MEDS: MUPIROCIN OINT 2% 22 GM TUBE NS SCH (10:34)
[2022-06-21] MEDS: ENSURE ENLIVE 237 ML LIQUID (VANILLA) PO SCH ×2 (10:35→12:09)
--- NOTE | 2022-06-21 11:00 | NUR ---
ms ana laura diaz nasal specimen sent to lab, patient will be discharge today.
--- NOTE | 2022-06-21 14:35 | NUR ---
ms rn patient transferred to [facility], report given to lily du,all needs attended.
== END 2022-06-21 14:50 | DRG 280 ==
LOC: ER 21:18 → ICU 06-15 05:36 → TELE 06-15 13:56 → MED 06-18 11:20
PROVIDERS: ADMIT Nurse Practitioner Acute Care; ATTEND Internal Medicine
PROC: 5A09357 Assistance with Respiratory Ventilation, Less than 24 Consecutive Hours, Continuous Positive Airway Pressure (ICD-10-PCS; principal; 2022-06-14)
PROC: 0W9B3ZZ Drainage of Left Pleural Cavity, Percutaneous Approach (ICD-10-PCS; 2022-06-20)
DX: I13.0 Hypertensive heart and chronic kidney disease with heart failure and stage 1 through stage 4 chronic kidney disease, or unspecified chronic kidney disease (principal); I21.A1 Myocardial infarction type 2; G82.50 Quadriplegia, unspecified; G93.41 Metabolic encephalopathy; N17.0 Acute kidney failure with tubular necrosis; J15.9 Unspecified bacterial pneumonia; I50.33 Acute on chronic diastolic (congestive) heart failure; J96.01 Acute respiratory failure with hypoxia; D68.59 Other primary thrombophilia; N39.0 Urinary tract infection, site not specified; J44.0 Chronic obstructive pulmonary disease with (acute) lower respiratory infection; F03.94 Unspecified dementia, unspecified severity, with anxiety; F03.93 Unspecified dementia, unspecified severity, with mood disturbance; J90 Pleural effusion, not elsewhere classified; E44.0 Moderate protein-calorie malnutrition; E87.20 Acidosis, unspecified; J98.11 Atelectasis; N13.6 Pyonephrosis; E11.22 Type 2 diabetes mellitus with diabetic chronic kidney disease; E78.5 Hyperlipidemia, unspecified; K21.9 Gastro-esophageal reflux disease without esophagitis; I25.10 Atherosclerotic heart disease of native coronary artery without angina pectoris; R13.10 Dysphagia, unspecified; Z79.51 Long term (current) use of inhaled steroids; Z79.4 Long term (current) use of insulin; Z79.899 Other long term (current) drug therapy; N18.9 Chronic kidney disease, unspecified; D63.8 Anemia in other chronic diseases classified elsewhere; E11.65 Type 2 diabetes mellitus with hyperglycemia; Z74.09 Other reduced mobility; E88.09 Other disorders of plasma-protein metabolism, not elsewhere classified; E03.9 Hypothyroidism, unspecified; B96.89 Other specified bacterial agents as the cause of diseases classified elsewhere; E87.6 Hypokalemia; K80.20 Calculus of gallbladder without cholecystitis without obstruction; K74.60 Unspecified cirrhosis of liver
CPT/HCPCS: 36415; 36600; 71045-TC; 71250-TC; 76700-TC; 80048-TC; 80053-TC; 80061-TC; 80076-TC; 81001; 82728-TC; 82803-TC; 82962-TC; 83540-TC; 83605-TC; 83735-TC; 83880; 84100-TC; 84439-TC; 84443-TC; 84484-TC; 85025-TC; 85610-TC; 85730-TC; 87081-TC; 87086-TC; 87102-TC; 89051-TC; 92526; 93307-TC; 94660; 94762-TC; 94799-TC; 97530-TC; 99082-TC; C9803; G0378; J0696; J1644; J1650; J1815; J1940; J3475; J3480; J3490; J7050; J7060